=== PATIENT | female | born 1945 | race Caucasian/White ===

== ENCOUNTER 2018-10-13 17:46 | Emergency (ER) | payer MEDICARE ==
[2018-10-13 17:59] VITALS: BP 128/56
--- NOTE | 2018-10-13 18:32 | UC ---
Skin Complaint HPI - HPI Summary HPI Summary: 73-year-old woman comes in with a chief complaint of an injury to her left lower ribs after falling off a ladder approximately 4 feet and onto a trailer hitch. Patient is an abrasion left posterior chest in the lower ribs. It hurts worse with twisting turning bending and taking a deep breath. She does not feel short of breath at rest. Denies any other injuries. Denies loss of consciousness or neck pain or weakness or numbness or extremity injuries. This happened about 4 PM today. She does have an abrasion at the site of the injury. - History of Current Complaint Chief Complaint: UCBackPain Time Seen by Provider: 10/13/18 18:30 Stated Complaint: RIB AND BACK INJURY Hx Last Menstrual Period: post menopause Pain Intensity: 6 - Allergy/Home Medications Allergies/Adverse Reactions: Allergies Allergy/AdvReac Type Severity Reaction Status Date / Time vancomycin Allergy Rash And Verified 03/29/18 13:40 Itching Home Medications: Home Medications Methotrexate TAB* 2.5 mg PO WEEKLY 10/13/18 [History Confirmed 10/13/18] PMH/Surg Hx/FS Hx/Imm Hx Previously Healthy: Yes Endocrine History: Diabetes Cardiovascular History: Hypertension GI/ History: Gastroesophageal Reflux - Surgical History Surgical History: Yes Surgery Procedure, Year, and Place: APPENDECTOMY, Hysterectomy, Tonsilectomy - Family History Known Family History: Positive: Hypertension, Diabetes - Social History Alcohol Use: None Substance Use Type: None Smoking Status (MU): Former Smoker Type: Cigarettes Amount Used/How Often: 1 ppd Length of Time of Smoking/Using Tobacco: 40+ years Have You Smoked in the Last Year: Yes When Did the Patient Quit Smoking/Using Tobacco: 07/2015 Household Exposure Type: Cigarettes - Immunization History Most Recent Influenza Vaccination: 2014 Most Recent Tetanus Shot: unknown Most Recent Pneumonia Vaccination: up to date per patient Review of Systems All Other Systems Reviewed And Are Negative: Yes Constitutional: Positive: Negative Skin: Positive: Other - SEE HPI Eyes: Positive: Negative ENT: Positive: Negative Respiratory: Positive: Other - SEE HPI Cardiovascular: Positive: Chest Pain Gastrointestinal: Positive: Negative Genitourinary: Positive: Negative Motor: Positive: Negative Neurovascular: Positive: Negative Musculoskeletal: Positive: Negative Neurological: Positive: Negative Psychological: Positive: Negative Is Patient Immunocompromised?: Yes - ON METHOTRXATE Physical Exam Triage Information Reviewed: Yes Appearance: Well-Appearing, Well-Nourished, Pain Distress - WITH DEEP INSPIRATION AND MOVEMENT Vital Signs: Initial Vital Signs Temp 98.2 F 10/13/18 17:52 Pulse 77 10/13/18 17:52 Resp 20 10/13/18 17:52 BP 128/56 10/13/18 17:52 Pulse Ox 96 10/13/18 17:52 Vital Signs Reviewed: Yes Eye Exam: Normal Eyes: Positive: Conjunctiva Clear Neck exam: Normal Neck: Positive: Supple, Nontender Respiratory: Positive: Lungs clear, Normal breath sounds, No respiratory distress, Other: - TENDER TO PALPATION LEFT POSTERIOR LOWER THORACIC BACK. Cardiovascular: Positive: RRR Abdomen Description: Positive: Nontender, Soft, CVA Tenderness (L). Negative: CVA Tenderness (R) Bowel Sounds: Positive: Present Musculoskeletal Exam: Normal Musculoskeletal: Positive: Strength Intact, ROM Intact Neurological Exam: Normal Neurological: Positive: Alert, Muscle Tone Normal Psychological Exam: Normal Psychological: Positive: Age Appropriate Behavior Skin: Positive: Other - 6CM DIAMETER ABRASION WITH UNDERLYING SWELLING LEFT LOWER POSTERIOR THORACIC Course/Dx - Course Course Of Treatment: EXAM: CT Chest Without Contrast EXAM DATE/TIME: 10/13/2018 6:54 PM CLINICAL HISTORY: 73 years old, female; Injury or trauma; Fall; Initial encounter; Abrasion; Abrasion and blunt trauma (contusions or hematomas); Injury date: 10/13/18; Injury details: PT fell from a ladder onto a hitch for a trailor, swelling/abrasion/pain left posterior lower rib area. PT has axiolateral left rib pain and SOB; Prior surgery; Surgery date: 6+ months; Surgery type: Appendectomy, hysterectomy, ; additional info: Fall off ladder, struck lt post chest lt flank TECHNIQUE: Imaging protocol: Axial computed tomography images of the chest without intravenous contrast. Coronal and sagittal reformatted images were created and reviewed. Radiation optimization: All CT scans at this facility use at least one of these dose optimization techniques: automated exposure control; mA and/or kV adjustment per patient size (includes targeted exams where dose is matched to clinical indication); or iterative reconstruction. COMPARISON: No relevant prior studies available. FINDINGS: Lungs: There is mild bibasilar atelectatic change or scarring. Pleural space: Normal. No pneumothorax. No pleural effusion. Heart: There are atherosclerotic aortic and coronary artery calcifications. Aorta: Normal. No aortic aneurysm. Lymph nodes: Unremarkable. No enlarged lymph nodes. Bones/joints: There are mild degenerative changes of the spine. Soft tissues: Unremarkable. Upper abdomen: Findings in the upper abdomen are described in the CT abdomen and pelvis dictation of the same day. IMPRESSION: No acute traumatic CT pathology of the chest. EXAM: CT Abdomen and Pelvis Without Contrast EXAM DATE/TIME: 10/13/2018 6:54 PM CLINICAL HISTORY: 73 years old, female; Injury or trauma; Fall; Initial encounter; Abrasion; Abrasion and blunt trauma (contusions or hematomas); Injury date: 10/13/18; Injury details: PT fell from a ladder onto a hitch for a trailor, swelling/abrasion/pain left posterior lower rib area. PT has axiolateral left rib pain and SOB; Prior surgery; Surgery date: 6+ months; Surgery type: Appendectomy, hysterectomy, ; additional info: Fall off ladder, struck lt post chest lt flank TECHNIQUE: Imaging protocol: Axial computed tomography images of the abdomen and pelvis without contrast. Coronal and sagittal reformatted images were created and reviewed. Radiation optimization: All CT scans at this facility use at least one of these dose optimization techniques: automated exposure control; mA and/or kV adjustment per patient size (includes targeted exams where dose is matched to clinical indication); or iterative reconstruction. COMPARISON: No relevant prior studies available. FINDINGS: Lower thorax: Findings in the lower thorax are described on the CT chest dictation of the same day. ABDOMEN: Liver: There is diffuse fatty liver and hepatomegaly. Gallbladder and bile ducts: There is cholelithiasis without pericholecystic inflammatory change. Pancreas: Normal. No ductal dilation. Spleen: Normal. No splenomegaly. Adrenals: Normal. No mass. Kidneys and ureters: Normal. No hydronephrosis. Stomach and bowel: There are postoperative changes involving the bowel. Appendix: No evidence of appendicitis. PELVIS: Bladder: Unremarkable as visualized. Reproductive: There are postoperative changes of hysterectomy. ABDOMEN and PELVIS: Intraperitoneal space: Normal. No free air. No significant fluid collection. Bones/joints: No acute fracture. No dislocation. Soft tissues: Unremarkable. Vasculature: There are atherosclerotic aortic and iliac and femoral artery calcifications. Lymph nodes: Normal. No enlarged lymph nodes. IMPRESSION: 1. There is cholelithiasis without pericholecystic inflammatory change. 2. No acute traumatic CT pathology of the abdomen or pelvis. To contact [facility] with a general question: [facility] - [phone] For direct physician to physician contact: Physician Hotline - [phone] [facility] ([facility] Facility ID #[id number]) End of Report Content Attending Doctor: Leoncio Escamilla ([id number]) Rooming House Operator: Garret Godoy ([id number]) Quarter Folder: Alissa DENSON ([facility]) Report Date: 10/13/2018 18:38:00 Report Status: Final Begin of Report Content Patient Name: LINH PUGA I Medical Record#: [id number] Ordering Physician: Leoncio Escamilla MD Acct.#: [id number] : 1945 Age: 73 Sex: F Location: [facility] Exam Date: 10/13/181837 ADM Status: [facility] ER Order Information: CT CHEST/ABD/PEL W/O Accession Number: [id number] CPT: 14022 EXAM: CT Chest Without Contrast EXAM DATE/TIME: 10/13/2018 6:54 PM CLINICAL HISTORY: 73 years old, female; Injury or trauma; Fall; Initial encounter; Abrasion; Abrasion and blunt trauma (contusions or hematomas); Injury date: 10/13/18; Injury details: PT fell from a ladder onto a hitch for a trailor, swelling/abrasion/pain left posterior lower rib area. PT has axiolateral left rib pain and SOB; Prior surgery; Surgery date: 6+ months; Surgery type: Appendectomy, hysterectomy, ; additional info: Fall off ladder, struck lt post chest lt flank TECHNIQUE: Imaging protocol: Axial computed tomography images of the chest without intravenous contrast. Coronal and sagittal reformatted images were created and reviewed. Radiation optimization: All CT scans at this facility use at least one of these dose optimization techniques: automated exposure control; mA and/or kV adjustment per patient size (includes targeted exams where dose is matched to clinical indication); or iterative reconstruction. COMPARISON: No relevant prior studies available. FINDINGS: Lungs: There is mild bibasilar atelectatic change or scarring. Pleural space: Normal. No pneumothorax. No pleural effusion. Heart: There are atherosclerotic aortic and coronary artery calcifications. Aorta: Normal. No aortic aneurysm. Lymph nodes: Unremarkable. No enlarged lymph nodes. Bones/joints: There are mild degenerative changes of the spine. Soft tissues: Unremarkable. Upper abdomen: Findings in the upper abdomen are described in the CT abdomen and pelvis dictation of the same day. IMPRESSION: No acute traumatic CT pathology of the chest. EXAM: CT Abdomen and Pelvis Without Contrast EXAM DATE/TIME: 10/13/2018 6:54 PM CLINICAL HISTORY: 73 years old, female; Injury or trauma; Fall; Initial encounter; Abrasion; Abrasion and blunt trauma (contusions or hematomas); Injury date: 10/13/18; Injury details: PT fell from a ladder onto a hitch for a trailor, swelling/abrasion/pain left posterior lower rib area. PT has axiolateral left rib pain and SOB; Prior surgery; Surgery date: 6+ months; Surgery type: Appendectomy, hysterectomy, ; additional info: Fall off ladder, struck lt post chest lt flank TECHNIQUE: Imaging protocol: Axial computed tomography images of the abdomen and pelvis without contrast. Coronal and sagittal reformatted images were created and reviewed. Radiation optimization: All CT scans at this facility use at least one of these dose optimization techniques: automated exposure control; mA and/or kV adjustment per patient size (includes targeted exams where dose is matched to clinical indication); or iterative reconstruction. COMPARISON: No relevant prior studies available. FINDINGS: Lower thorax: Findings in the lower thorax are described on the CT chest dictation of the same day. ABDOMEN: Liver: There is diffuse fatty liver and hepatomegaly. Gallbladder and bile ducts: There is cholelithiasis without pericholecystic inflammatory change. Pancreas: Normal. No ductal dilation. Spleen: Normal. No splenomegaly. Adrenals: Normal. No mass. Kidneys and ureters: Normal. No hydronephrosis. Stomach and bowel: There are postoperative changes involving the bowel. Appendix: No evidence of appendicitis. PELVIS: Bladder: Unremarkable as visualized. Reproductive: There are postoperative changes of hysterectomy. ABDOMEN and PELVIS: Intraperitoneal space: Normal. No free air. No significant fluid collection. Bones/joints: No acute fracture. No dislocation. Soft tissues: Unremarkable. Vasculature: There are atherosclerotic aortic and iliac and femoral artery calcifications. Lymph nodes: Normal. No enlarged lymph nodes. IMPRESSION: 1. There is cholelithiasis without pericholecystic inflammatory change. 2. No acute traumatic CT pathology of the abdomen or pelvis. To contact [facility] with a general question: [facility] - [phone] For direct physician to physician contact: Physician Hotline - [phone] [facility] ([facility] Facility ID #[id number]) <Electronically signed by Garret Godoy MD in OV> 10/13/181946 I discussed the CT report with the patient and her . Also discussed the urinalysis results. Patient declined any medicine stronger than ibuprofen. She reports she has that at home she'll take that. Patient sent home with an incentive spirometer. Follow-up with her primary care physician. I let her know that if her condition worsened are all she needed to get reevaluated again right away in the emergency department. - Diagnoses Provider Diagnosis: Contusion of rib on left side Discharge - Sign-Out/Discharge Documenting (check all that apply): Patient Departure All imaging exams completed and their final reports reviewed: Yes - Discharge Plan Condition: Stable Disposition: HOME Patient Education Materials: Rib Contusion (ED) Referrals: Tawana Morales MD [Primary Care Provider] - Additional Instructions: FOLLOW UP WITH YOUR DOCTOR. GO TO THE EMERGENCY DEPARTMENT FOR WORSENING OF YOUR CONDITION; PAIN, SHORTNESS OF BREATH, BLOOD IN YOUR URINE, FEVER, YOU FEEL ILL OR QUESTIONS OR CONCERNS. USE THE INCENTIVE SPIROMETER EVERY 4 HOURS OR MORE FREQUENTLY TO HELP AVOID A RESPIRATORY INFECTION. - Billing Disposition and Condition Condition: STABLE Disposition: Home
[2018-10-13] MEDS ORDERED: Ibuprofen TAB* 600 MG PO ONE (18:37)
== END 2018-10-13 20:25 | disposition home or self-care (01) ==
LOC: UCEAST 17:46
DX: S20.212A Contusion of left front wall of thorax, initial encounter (principal); E11.9 Type 2 diabetes mellitus without complications; I10 Essential (primary) hypertension; Z88.1 Allergy status to other antibiotic agents; Z87.891 Personal history of nicotine dependence; W11.XXXA Fall on and from ladder, initial encounter; Y92.9 Unspecified place or not applicable
CPT/HCPCS: 71250; 74176; 81003; 99212; A9270-GY; G0463